=== PATIENT | female | born 1955 | race Caucasian/White ===

== ENCOUNTER 2017-09-17 07:37 | Day surgery (SDC) | payer BC ==
[~2017-09-17 07:37] MED LIST: Lactated Ringers 1,000 ML IV SCH; Sodium Chloride 0.9% 10 ML Syringe FLUSH PRN
[2017-09-17] MEDS: Lactated Ringers 1,000 ML IV SCH (09:30)
[2017-09-17] MEDS ORDERED: Lidocaine 1% with EPINEPHrine 1:100,000 20 ML MDV ONE (10:30)
[2017-09-17] MEDS: ceFAZolin 1 GM Vial ONE (10:36)
[2017-09-17] MEDS: ceFAZolin 1 GM in Sodium Chloride 0.9% 50 ML IV ONE (11:14)
== END 2017-09-17 12:30 | disposition home or self-care (01) ==
LOC: LB.SDS 07:37
PROVIDERS: ATTEND Podiatrist Foot & Ankle Surgery
DX: M20.41 Other hammer toe(s) (acquired), right foot (principal); E78.5 Hyperlipidemia, unspecified; J45.909 Unspecified asthma, uncomplicated; F32.9 Major depressive disorder, single episode, unspecified; Z88.1 Allergy status to other antibiotic agents; Z88.2 Allergy status to sulfonamides; Z88.8 Allergy status to other drugs, medicaments and biological substances; Z79.899 Other long term (current) drug therapy
CPT/HCPCS: J0690; J7120

== ENCOUNTER 2021-05-31 20:47 | Emergency (ER) | payer MEDICARE, BC ==
--- NOTE | 2021-05-31 22:18 | EDM.PDOC ---
ED [facility] GENERAL MEDICAL PROBLEM - General Chief Complaint: Neurological Problem Stated Complaint: DIZZINESS Time Seen by Provider: 05/31/21 21:30 Source of Information: Reports: Patient, RN Notes Reviewed History Limitations: Reports: No Limitations - History of Present Illness INITIAL COMMENTS - FREE TEXT/NARRATIVE: This patient presents to the emergency department for evaluation of dizziness. She states that she has had several episodes of dizziness today that included a feeling of being flushed, warm, and dizzy. They lasted a short amount of time and seem to resolve themselves. She states she had a couple of them yesterday as well and these were when she was moving through a store, standing and walking. The episodes today were primarily when she was sitting at a dinner and eating. She denies feeling any palpitations. She denies any difficulty breathing. She does feel a little sweaty when these occur as well. She denies chest pain, difficulty breathing. She denies any change in her appetite, nausea, vomiting, diarrhea. - Related Data Allergies Allergy/AdvReac Type Severity Reaction Status Date / Time amoxicillin [From Augmentin] Allergy Rash Verified 06/01/21 01:57 clavulanic acid Allergy Rash Verified 06/01/21 01:57 [From Augmentin] nitrofurantoin Allergy Rash Verified 06/01/21 01:57 [From Macrodantin] Sulfa (Sulfonamide Allergy Facial Verified 06/01/21 01:57 Antibiotics) Swelling ED ROS GENERAL - Review of Systems Review Of Systems: Comprehensive ROS is negative, except as noted in HPI. Constitutional: Denies: Fever, Chills, Decreased Appetite ED EXAM, NEURO - Physical Exam Exam: See Below Exam Limited By: No Limitations General Appearance: Alert, No Apparent Distress Eye Exam: Bilateral Eye: Normal Inspection, PERRL Ears: Normal External Exam, Hearing Grossly Normal Nose: Normal Inspection (Son was carrying her down there) Throat/Mouth: Normal Inspection Head Exam: Atraumatic, Normocephalic Neck: Normal Inspection, Full Range of Motion Respiratory/Chest: No Respiratory Distress, Lungs Clear, Normal Breath Sounds, No Accessory Muscle Use, Chest Non-Tender Cardiovascular: Normal Peripheral Pulses, Regular Rate, Rhythm (This should be) GI/Abdominal: Normal Bowel Sounds, Soft, Non-Tender (And noticed that) Neurological: Alert, Normal Mood/Affect Back Exam: Normal Inspection Extremities: Normal Inspection, No Pedal Edema, Normal Capillary Refill Psychiatric: Normal Affect, Normal Mood Skin Exam: Warm, Dry, Intact, Normal Color Course - Vital Signs Last Recorded V/S: Last Vital Signs Temp 36.9 C 05/31/21 20:50 Pulse 85 05/31/21 20:50 Resp 16 05/31/21 20:50 BP 128/93 H 05/31/21 20:50 Pulse Ox 97 05/31/21 20:50 - Orders/Labs/Meds Orders: Active Orders 24 hr Category Date Time Status Head wo Cont [CT] Stat Exams 05/31/21 21:15 Taken Labs: Laboratory Tests 05/31/21 05/31/21 Range/Units 21:25 21:25 WBC 5.3 (4.0-11.0) K/uL RBC 4.75 (3.80-5.80) M/uL Hgb 13.5 (11.5-16.5) g/dL Hct 40.9 (37.0-47.0) % MCV 86 (76-96) fL MCH 28.4 (27.0-32.0) pg MCHC 33.0 (31.0-35.0) g/dL RDW 15.4 (11.0-16.0) % Plt Count 294 D (150-500) K/uL MPV 9.7 (6.0-10.0) fL Neut % (Auto) 55.5 (45.0-70.0) % Lymph % (Auto) 24.0 (20.0-40.0) % Elmore % (Auto) 13.2 H (3.0-10.0) % Eos % (Auto) 6.0 H (1.0-5.0) % Baso % (Auto) 1.3 H (0.0-0.5) % Neut # (Auto) 2.93 (2.00-7.50) K/uL Lymph # (Auto) 1.27 L (1.50-4.00) K/uL Elmore # (Auto) 0.70 (0.20-0.80) K/uL Eos # (Auto) 0.32 (0.04-0.40) K/uL Baso # (Auto) 0.07 (0.02-0.10) K/uL Sodium 142 (136-145) mmol/L Potassium 3.4 L (3.5-5.1) mmol/L Chloride 107 (98-107) mmol/L Carbon Dioxide 28.7 (21.0-32.0) mmol/L Anion Gap 9.7 (5.0-15.0) mmol/L BUN 23 D (8-26) mg/dL Creatinine 0.95 (0.55-1.02) mg/dL Est Cr Clr Drug Dosing TNP Estimated GFR (MDRD) 59 L (>60) MLS/MIN BUN/Creatinine Ratio 24.2 (6-25) Glucose 115 H (74-100) mg/dL Calcium 9.8 (8.5-10.1) mg/dL - Re-Assessments/Exams Free Text/Narrative Re-Assessment/Exam: 06/01/21 10:28 This patient presents to the emergency department for evaluation of dizziness. Along with the feeling of dizziness she has had a feeling of being flushed and sweaty. She has had no syncope, chest pain, palpitations. The work-up here in the ED was to evaluate for infection, metabolic, electrolyte, neurologic or cardiovascular causes. Her lab work was normal as was her head CT. EKG was normal as well. There is no signs of pneumonia or UTI causing symptoms. I am concerned that the symptoms may be related to intermittent cardiac arrhythmia. For this I did have a Zio patch placed and will continue to monitor her through this for several days. I do not believe her symptoms are due to a CVA or TIA or an acute coronary syndrome. There is no indication that she needed further work-up, admission to the hospital or other care. She was discharged home and was comfortable with this and will follow up with her primary care provider or return to the ER as needed. Departure - Departure Time of Disposition: 22:20 Disposition: Home, Self-Care 01 Condition: Good Clinical Impression: Dizziness - Discharge Information *PRESCRIPTION DRUG MONITORING PROGRAM REVIEWED*: Not Applicable *COPY OF PRESCRIPTION DRUG MONITORING REPORT IN PATIENT [place]: Not Applicable Instructions: Vertigo, Dizziness Forms: ED Department Discharge Additional Instructions: follow up as directed for Zio patch. return for worsening problems - My Orders Last 24 Hours: My Active Orders 05/31/21 21:15 Head wo Cont [CT] Stat - Assessment/Plan Last 24 Hours: My Active Orders 05/31/21 21:15 Head wo Cont [CT] Stat
--- NOTE | 2021-06-01 12:21 | CT ---
Date of Service: 05/31/21 Clinical Data: trauma UNENHANCED BRAIN CT: Multislice acquisition through the brain without IV contrast was performed. No priors. No masses or mass effect. No intracranial hemorrhage. No evidence of acute or subacute infarct. No osseous abnormalities. IMPRESSION: No acute intracranial abnormalities. [id number] [facility]
== END 2021-05-31 22:25 | disposition home or self-care (01) ==
LOC: LB.ED 20:47
DX: R42 Dizziness and giddiness (principal); Z88.2 Allergy status to sulfonamides; Z88.0 Allergy status to penicillin; Z88.8 Allergy status to other drugs, medicaments and biological substances
CPT/HCPCS: 36415; 70450; 80048; 85025; 93005; 93246; 93247; 99284-25

== ENCOUNTER 2022-04-02 08:26 | Day surgery (SDC) | payer MEDICARE, BC ==
[~2022-04-02 08:26] MED LIST changes: -Lactated Ringers 1,000 ML IV SCH; +Metoclopramide 10 MG/2 ML SDV IV PRN; -Sodium Chloride 0.9% 10 ML Syringe FLUSH PRN
[2022-04-02] MEDS: Sodium Chloride 0.9% 1,000 ML IV SCH (09:02)
[2022-04-02] MEDS ORDERED: Propofol 1,000 MG/100 ML SDV ONE (10:10)
== END 2022-04-02 11:00 | disposition home or self-care (01) ==
LOC: LB.SDS 08:26
PROVIDERS: ATTEND Surgery
DX: Z12.11 Encounter for screening for malignant neoplasm of colon (principal); K57.30 Diverticulosis of large intestine without perforation or abscess without bleeding; J45.909 Unspecified asthma, uncomplicated; R73.01 Impaired fasting glucose; E78.5 Hyperlipidemia, unspecified; F32.A Depression, unspecified; M81.0 Age-related osteoporosis without current pathological fracture; Z88.2 Allergy status to sulfonamides; Z88.8 Allergy status to other drugs, medicaments and biological substances; Z79.899 Other long term (current) drug therapy; Z79.82 Long term (current) use of aspirin; Z98.890 Other specified postprocedural states
CPT/HCPCS: J2704; J7030

== ENCOUNTER 2023-03-29 15:22 | Emergency (ER) | payer MEDICARE, BC ==
[2023-03-29 15:42] VITALS: BP 120/73; PULSE 68
[2023-03-29] MEDS ORDERED: HYDROmorphone 2 MG/ML Syringe IVPUSH ONE (15:45)
[2023-03-29] MEDS ORDERED: HYDROmorphone 2 MG/ML Syringe ONE (15:53)
[2023-03-29 15:55] LABS: BASOPHILS ABSOLUTE AUTO 0.03 K/uL (0.02-0.10); BASOPHILS PERCENT AUTO 0.6 % (0.0-0.5); EOSINOPHILS ABSOLUTE AUTO 0.21 K/uL (0.04-0.40); EOSINOPHILS PERCENT AUTO 4.3 % (1.0-5.0); HEMOGLOBIN 11.1 g/dL (11.5-16.5); LYMPHOCYTES ABSOLUTE AUTO 0.82 K/uL (1.50-4.00); LYMPHOCYTES PERCENT AUTO 16.8 % (20.0-40.0); MEAN CORPUSCULAR HEMOGLOBIN 32.8 pg (27.0-32.0); MEAN CORPUSCULAR HGB CONC 32.6 g/dL (31.0-35.0); MEAN CORPUSCULAR VOLUME 101 fL (76-96); MEAN PLATELET VOLUME 10.5 fL (6.0-10.0); MONOCYTES ABSOLUTE AUTO 0.64 K/uL (0.20-0.80); MONOCYTES PERCENT AUTO 13.1 % (3.0-10.0); NEUTROPHILS ABSOLUTE AUTO 3.19 K/uL (2.00-7.50); NEUTROPHILS PERCENT AUTO 65.2 % (45.0-70.0); PLATELET COUNT,PLT 251 K/uL (150-500); RED BLOOD CELL COUNT 3.38 M/uL (3.80-5.80); RED CELL DISTRIBUTION WIDTH 16.7 % (11.0-16.0); WHITE BLOOD CELL COUNT,WBC 4.9 K/uL (4.0-11.0)
[2023-03-29 16:33] LABS: APPEARANCE,URINE CLEAR (CLEAR); BILIRUBIN,URINE NEGATIVE (NEGATIVE); COLOR,URINE YELLOW; GLUCOSE,URINE NEGATIVE (NEGATIVE); KETONES,URINE NEGATIVE (NEGATIVE); LEUKOCYTE ESTERASE,URINE SMALL (NEGATIVE); NITRITE,URINE NEGATIVE (NEGATIVE); OCCULT BLOOD,URINE TRACE-INTACT (NEGATIVE); PROTEIN,URINE NEGATIVE (NEGATIVE); UROBILINOGEN,URINE 0.2 E.U./dL (0.2-1.0)
[2023-03-29 16:34] LABS: A/G RATIO 1.3 (0.8-2.0); ALBUMIN 3.6 g/dL (3.4-5.0); ANION GAP 9.3 mmol/L (5.0-15.0); BILIRUBIN TOTAL 0.3 mg/dL (0.0-1.0); BUN/CREATININE RATIO 21.8 (6-25); CALCIUM 8.8 mg/dL (8.5-10.1); CREATININE 0.87 mg/dL (0.55-1.02); EST CRCL DRUG DOSING (CG) 51.91 mL/min; POTASSIUM,K 4.3 mmol/L (3.5-5.1); PROTEIN TOTAL,TP 6.4 g/dL (6.4-8.2)
[2023-03-29] MEDS ORDERED: Pantoprazole 40 MG Vial ONE (16:54)
[2023-03-29] MEDS ORDERED: Pantoprazole 40 MG Vial IVPUSH ONE (17:01)
== END 2023-03-29 17:00 | disposition home or self-care (01) ==
LOC: LB.ED 15:22
DX: K21.9 Gastro-esophageal reflux disease without esophagitis (principal); E78.00 Pure hypercholesterolemia, unspecified; M19.90 Unspecified osteoarthritis, unspecified site; M25.562 Pain in left knee; J45.909 Unspecified asthma, uncomplicated; Z79.82 Long term (current) use of aspirin; Z86.16 Personal history of COVID-19; Z88.1 Allergy status to other antibiotic agents; Z88.2 Allergy status to sulfonamides; Z88.8 Allergy status to other drugs, medicaments and biological substances
CPT/HCPCS: 36415; 71250; 73562-LT; 73565; 74176; 80053; 81001; 83690; 85025; 96374; 96375; 99283; 99284-25; C9113; J1170